=== PATIENT | male | born 1995 | race Caucasian/White ===

== ENCOUNTER 2017-08-02 04:01 | Emergency (ER) | payer MEDICAID ==
[~2017-08-02] VITALS: Ht 177.8 cm; Wt 86.2 kg
[2017-08-02 07:07] VITALS: BP 148/72
[2017-08-02] MEDS ORDERED: TETRACAINE HCL 0.5% OPTH(EYE) SOLN 4ML LEFTEYE ONE (07:30)
[2017-08-02] MEDS ORDERED: FLUORESCEIN SOD 1 MG TEST STRIP LEFTEYE ONE (07:30)
== END 2017-08-02 08:26 | disposition home or self-care (01) ==
LOC: ER 04:01
DX: H10.9 Unspecified conjunctivitis (principal)